=== PATIENT | female | born 1990 | race Caucasian/White ===

== ENCOUNTER 2017-01-01 16:22 | Emergency (ER) | payer MEDICAID ==
[~2017-01-01] VITALS: Ht 172.7 cm; Wt 88.5 kg
[2017-01-01 16:30] VITALS: BP 119/85
== END 2017-01-01 17:28 | disposition home or self-care (01) ==
LOC: ED 16:48
DX: H66.91 Otitis media, unspecified, right ear (principal); R51 Headache
CPT/HCPCS: 99283